=== PATIENT | male | born 1960 | race Caucasian/White ===

== ENCOUNTER 2022-05-30 13:28 | Emergency (ER) | payer MEDICAID ==
[~2022-05-30] VITALS: Ht 172.7 cm; Wt 90.7 kg
[2022-05-30 13:28] VITALS: BP_SYST 100
[~2022-05-30 13:28] MED LIST: FOLI-43 PO; PRO40 PO; SUCR1TAB2 PO; THIA100T13 PO
[2022-05-30 19:40] VITALS: BP_SYST 139
== END 2022-05-30 19:40 | disposition home or self-care (01) ==
LOC: SED 13:28
DX: I10 Essential (primary) hypertension (principal); E11.9 Type 2 diabetes mellitus without complications; F10.129 Alcohol abuse with intoxication, unspecified; Y90.9 Presence of alcohol in blood, level not specified
CPT/HCPCS: 99281

== ENCOUNTER 2022-05-30 23:30 | Emergency (ER) | payer MEDICAID ==
[~2022-05-30] VITALS: Ht 172.7 cm; Wt 90.7 kg
[2022-05-30 23:47] VITALS: BP_SYST 126
[2022-05-31] MEDS ORDERED: ACETAMINOPHEN 325 MG TABLET PO ONE (03:45)
[2022-05-31 03:46] VITALS: BP_SYST 134
== END 2022-05-31 03:46 | disposition home or self-care (01) ==
LOC: SED 23:30
DX: R51.9 Headache, unspecified (principal); F10.129 Alcohol abuse with intoxication, unspecified; I10 Essential (primary) hypertension; E11.9 Type 2 diabetes mellitus without complications; Z79.899 Other long term (current) drug therapy; Y90.9 Presence of alcohol in blood, level not specified
CPT/HCPCS: 70450-TC; 76376; 99284